=== PATIENT | female | born 1975 | race Caucasian/White ===

== ENCOUNTER 2016-12-26 14:06 | Emergency (ER) | payer SELFPAY ==
[~2016-12-26] VITALS: Ht 165.1 cm; Wt 63.5 kg
[2016-12-26 14:29] VITALS: Ht 165.1 cm; Wt 63.5 kg
[2016-12-26] MEDS ORDERED: IBUPROFEN 600 MG TAB PO ONE (15:30)
[2016-12-26] MEDS ORDERED: IBUP-1542 PO (15:50)
[2016-12-26] MEDS ORDERED: CYCL-319 PO (15:50)
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
== END 2016-12-26 16:13 | disposition home or self-care (01) ==
LOC: FTE 14:06
DX: S40.022A Contusion of left upper arm, initial encounter (principal); S40.021A Contusion of right upper arm, initial encounter; V49.40XA Driver injured in collision with unspecified motor vehicles in traffic accident, initial encounter
CPT/HCPCS: 99283